=== PATIENT | female | born 1995 | race Two or more races ===

== ENCOUNTER 2021-09-02 10:53 | Outpatient (CLI) | payer OTHER | END 2021-09-02 12:20 | disposition home or self-care (01) | LOC: PRENATAL 10:53 | PROVIDERS: ATTEND Obstetrics & Gynecology Maternal & Fetal Medicine | DX: O35.0XX1 Maternal care for (suspected) central nervous system malformation in fetus, fetus 1 (principal); O35.3XX1 Maternal care for (suspected) damage to fetus from viral disease in mother, fetus 1; O98.512 Other viral diseases complicating pregnancy, second trimester; Z36.89 Encounter for other specified antenatal screening; Z3A.20 20 weeks gestation of pregnancy ==

== ENCOUNTER → 2021-11-13 20:00 | Outpatient (CLI) | payer OTHER | END | disposition home or self-care (01) | LOC: OBS/DEL 20:00 | PROVIDERS: ATTEND Obstetrics & Gynecology | DX: O23.593 Infection of other part of genital tract in pregnancy, third trimester (principal); Z3A.32 32 weeks gestation of pregnancy ==

== ENCOUNTER 2022-01-05 05:23 | Inpatient (IN) | payer OTHER ==
[~2022-01-05] VITALS: Ht 165.1 cm; Wt 88.0 kg
[2022-01-05] MEDS ORDERED: PRENATAL CAPLE1 EAC1 PO (06:56)
[2022-01-05] MEDS ORDERED: IRON236 MG PO (06:56)
[2022-01-05] MEDS ORDERED: VITAMIN C100 MG (06:57)
== END 2022-01-07 12:37 | disposition home or self-care (01) | DRG 807 ==
LOC: OB/GYN 05:23 → LDR 05:23 → OB/GYN 22:24
PROVIDERS: ADMIT Obstetrics & Gynecology; ATTEND Obstetrics & Gynecology
PROC: 10E0XZZ Delivery of Products of Conception, External Approach (ICD-10-PCS; principal; 2022-01-05)
PROC: 4A1HXCZ Monitoring of Products of Conception, Cardiac Rate, External Approach (ICD-10-PCS; 2022-01-05)
PROC: 0W8NXZZ Division of Female Perineum, External Approach (ICD-10-PCS; 2022-01-05)
DX: O80 Encounter for full-term uncomplicated delivery (principal); Z37.0 Single live birth; Z3A.39 39 weeks gestation of pregnancy; Z20.822 Contact with and (suspected) exposure to COVID-19

== ENCOUNTER 2024-06-17 13:57 | Inpatient (IN) | payer OTHER ==
[~2024-06-17] VITALS: Ht 162.6 cm; Wt 84.4 kg
[2024-06-17] VITALS (8 sets, daily range): BP systolic 118–141; BP diastolic 62–89
[~2024-06-17 13:57] MED LIST: IRON236 MG PO; OSEL75CA PO; PEPCID AC20 MG PO; PRENATAL CAPLE1 EAC1 PO; VITAMIN C100 MG
[2024-06-17] MEDS ORDERED: RINGERS SOLUTION,LACTATED 1,000 ML IV SCH (14:00)
[2024-06-17] MEDS ORDERED: MEPERIDINE HCL/PF 50 MG/ML VIAL IV ONE (17:15)
[2024-06-17] MEDS ORDERED: PROMETHAZINE HCL 25 MG/ML AMPUL IV ONE (17:15)
[2024-06-17] MEDS ORDERED: OXYTOCIN 500 ML IV SCH (17:15)
[2024-06-17 17:53] LABS: URINE APPEARANCE Clear; URINE BACTERIA 35.2 uL (0.0-1933); URINE BILIRRUBIN Negative (NEGATIVE); URINE BLOOD Moderate; URINE COLOR Yellow; URINE EPITHELIAL CELLS 18.8 uL (0.0-38.8); URINE GLUCOSE Negative (NEGATIVE); URINE LEUKOCYTE Negative; URINE NITRATE Negative; URINE PROTEIN Trace (NEGATIVE); URINE RBC 241.8 uL (0.0-20.8); URINE UROBILINOGEN 0.2 E.U./dl; URINE WBC 11.7 uL (0.0-23.2)
[2024-06-17 18:13] LABS: HEMATOCRIT 34.6 % (36.0-45.00); HEMOGLOBIN 11.3 g/dL (12.0-15.00); MEAN CELL VOLUME 81.9 fL (80.00-100.00); MEAN CORPUSCULAR HEMOGLOBIN 26.7 pg (27.00-32.0); MEAN CORPUSCULAR HGB CONC 32.6 g/dl (32.0-36.0); PLATELET COUNT 271 K/uL (150-450); RED BLOOD COUNT 4.22 M/uL (4.00-6.00); RED CELL DISTRIBUTION WIDTH 14.9 % (11.5-14.5)
[2024-06-17 18:14] LABS: INR < 0.93; PARTIAL THROMBOPLASTIN TIME 26.9 SECONDS (22.0-34.0)
[2024-06-17 18:19] LABS: BILIRUBIN TOTAL 0.36 mg/dL (0.3-1.2); CALCIUM 9.7 mg/dL (8.5-10.1); CREATININE SERUM 0.43 mg/dL (0.55-1.02); GFR 173.6; GLOBULINA 3.4 G/DL (2.4-3.5); POTASSIUM 4.03 mEq/L (3.5-5.1); TOTAL PROTEIN 6.4 gm/dL (6.4-8.2)
[2024-06-17 18:25] LABS: URINE CAST 0.45 uL (0.0-1.40); URINE KETONE >=160 (NEGATIVE)
[2024-06-17] MEDS ORDERED: IBUprofen 600 MG TABLET PO SCH (19:30)
[2024-06-17] MEDS ORDERED: LIDOCAINE HCL 1% 10ML VIAL PERCUT ONE (20:00)
[2024-06-17] MEDS ORDERED: CHLORHEXIDINE GLUCONATE 120 ML BOTTLE TOP ONE (20:00)
[2024-06-17] MEDS ORDERED: ERYTHROMYCIN BASE OPHT 1GM EACH TUBE OP ONE (20:00)
[2024-06-17] MEDS ORDERED: OXYTOCIN 1,000 ML IV SCH (20:00)
[2024-06-18 00:43] VITALS: BP 126/64
[2024-06-18] MEDS ORDERED: IBUprofen 600 MG TABLET PO SCH (06:00)
[2024-06-18 08:03] VITALS: BP 123/75
[2024-06-18 12:53] VITALS: BP 108/71
[2024-06-18 19:45] VITALS: BP 110/65
[2024-06-19] VITALS: BP 128/78
[2024-06-19 01:13] VITALS: BP 128/78
[2024-06-19 04:00] VITALS: BP 120/78
[2024-06-19 08:46] VITALS: BP 120/74
[2024-06-19] MEDS ORDERED: MEASLES,MUMPS,RUBELLA VACC/PF 1 VIAL VIAL SUBCUTANEO ONE (14:47)
[2024-06-19 16:00] VITALS: BP 132/75
[2024-06-20 01:57] VITALS: BP 123/75
[2024-06-20 08:57] VITALS: BP 124/80
== END 2024-06-20 16:53 | disposition home or self-care (01) | DRG 807 ==
LOC: OBS/DEL 13:57 → LDR 17:08 → OB/GYN 17:08
PROVIDERS: ADMIT Specialist; ATTEND Specialist
PROC: 10E0XZZ Delivery of Products of Conception, External Approach (ICD-10-PCS; principal; 2024-06-17)
PROC: 0W8NXZZ Division of Female Perineum, External Approach (ICD-10-PCS; 2024-06-17)
PROC: BY4FZZZ Ultrasonography of Third Trimester, Single Fetus (ICD-10-PCS; 2024-06-17)
PROC: 4A1HXCZ Monitoring of Products of Conception, Cardiac Rate, External Approach (ICD-10-PCS; 2024-06-17)
DX: O80 Encounter for full-term uncomplicated delivery (principal); Z37.0 Single live birth; Z3A.37 37 weeks gestation of pregnancy; Z20.822 Contact with and (suspected) exposure to COVID-19

== ENCOUNTER → 2025-07-27 | Emergency (ER) | payer OTHER ==
[~2025-07-27] VITALS: Ht 165.1 cm; Wt 71.7 kg
[~2025-07-27] MED LIST changes: +DRAMAMINE LESS25 MG PO
[2025-07-27 20:51] LABS: BASO % 0.4 % (0.1-1.2); EOS # 0.16 (0.04-0.54); EOS % 2.1 % (0.7-7.0); LYMPH # 2.14 (1.18-3.74); LYMPH % 28.4 % (19.3-53.1); MEAN PLATELET VOLUME 9.40 fl (9.4-12.4); MONO # 0.48 (0.24-0.82); MONO % 6.4 % (4.7-12.5); NEUT # 4.71 (1.56-6.13); NEUT % 62.4 % (34.0-71.1); RED CELL DISTRIBUTION WIDTH 12.8 % (11.6-14.4)
[2025-07-27 21:39] LABS: ALT/SGPT 33.0 U/L (12-78); AST/SGOT 17.0 U/L (15-37); BILIRUBIN TOTAL 0.25 mg/dL (0.3-1.2); BUN CREA RATIO 15.0 (7.0-25.0); CREATININE SERUM 0.66 mg/dL (0.55-1.02); GFR 105.15; GLOBULINA 3.5 G/DL (2.4-3.5); GLUCOSE FASTING 119.0 mg/dL (65-100); OSMOLALITY SERUM 278.0 MOSM/KG (275-295)
== END | disposition home or self-care (01) ==
LOC: ER 18:47
PROVIDERS: General Practice
DX: R42 Dizziness and giddiness (principal); Z91.013 Allergy to seafood